=== PATIENT | female | born 1955 | race Caucasian/White ===

== ENCOUNTER 2022-05-28 17:45 | Inpatient (IN) | payer OTHER ==
[~2022-05-28] VITALS: Ht 167.6 cm; Wt 75.0 kg
[~2022-05-28 17:45] MED LIST: ALPR.25 PO; ATOR20 PO; CEPH500 PO; COMBIVENT RESPIM4 GM INH; DIABETIC MED; DIPATR PO; FLUSAL1005 INH; GLIM2 PO; Glucophage1000 MG PO; HYDACE5 PO; HYDPAM25 PO; HYPERTENSION MED; INSDET100 SQ; INSULANPEN SC; METF500; METF500 PO; NAPR500 PO; NERVE MED; OLAN10; OLAN10 PO; OLAN20 MM; RAMI2.5; RAMI2.5 PO; RAMI5 PO; RXHYDACE PO; TIOT18; TRAZ100; TRAZ150T57 PO; TRAZ50 PO; ZYPREXA ZYDIS PO; Zofran Odt8 MG SL
[2022-05-28 19:00] LABS: BASOPHILS ABSOLUTE AUTO 0.07 K/mm3 (0.00-0.23); BASOPHILS PERCENT AUTO 0 % (0-2); EOSINOPHILS ABSOLUTE AUTO 0.16 K/mm3 (0.00-0.68); EOSINOPHILS PERCENT AUTO 1 % (0-6); Hematocrit 37.9 % (33.0-51.0); Hemoglobin 12.4 g/dL (11.5-16.0); IMMATURE GRAN PERCENT AUTO 1 % (0-1); LYMPHOCYTES ABSOLUTE AUTO 2.23 K/mm3 (0.84-5.20); LYMPHOCYTES PERCENT AUTO 9 % (21-46); MONOCYTES ABSOLUTE AUTO 2.26 K/mm3 (0.16-1.47); MONOCYTES PERCENT AUTO 9 % (4-13); Mean Corpuscular HGB 25.9 pg (26.0-34.0); Mean Corpuscular HGB Conc 32.7 g/dL (31.5-36.5); Mean Corpuscular Volume 79 fL (80-100); Mean Platelet Volume 9.6 fL (9.1-12.4); NEUTROPHILS ABSOLUTE AUTO 20.47 K/mm3 (1.96-9.15); NEUTROPHILS PERCENT AUTO 80 % (41-73); Platelet Count 401 K/mm3 (150-400); RDW Standard Deviation 40.3 fL (35.1-46.3); Red Blood Cell Count 4.79 M/mm3 (3.80-5.20); White Blood Cell Count 25.49 K/mm3 (4.00-11.30)
[2022-05-28 19:23] LABS: Albumin, Blood 2.4 g/dL (3.4-5.0); Albumin/Globulin Ratio 0.6 (0.8-1.8); Bilirubin, Total 0.4 mg/dL (0.1-1.0); Bun/Creatinine Ratio 43.6 (12.0-20.0); Calcium, Blood 8.6 mg/dL (8.5-10.1); Creatinine, Blood 1.33 mg/dL (0.40-1.00); Globulin, Blood 4.3 g/dL (2.2-4.0); Potassium, Blood 5.6 mmol/L (3.5-5.5); Total Protein, Blood 6.7 g/dL (6.4-8.2)
[2022-05-28 20:03] LABS: Influenza A, PCR NEGATIVE (NEGATIVE); Influenza B, PCR NEGATIVE (NEGATIVE); Resp Syncytial Virus, PCR NEGATIVE (NEGATIVE); SARS-Cov-2 (COVID-19) PCR, MMC NEGATIVE (NEGATIVE)
[2022-05-28 21:11] LABS: Source, Urine Straight Cath
[2022-05-28 21:14] LABS: Appearance, Urine Clear (Clear); Base Excess Venous 1.4 mmol/L; Bicarbonate Venous 24.8 mmol/L (24.0-30.0); Bilirubin, Urine Neg (Neg); Blood, Urine Neg (Neg); Color, Urine Yellow (P-Yellow); Glucose Qualitative, Urine 2+ (Neg); Ketones, Urine Neg (Neg); Leukocyte Esterase, Urine Neg (Neg); Nitrite, Urine Neg (Neg); PCO2 Venous 53.3 mmHg (38-42); Protein, Urine 2+ (Neg); Specific Gravity, Urine 1.025 (1.003-1.022); Urobilinogen, Urine NORM (Normal); pH Blood Venous 7.32 (7.34-7.37)
[2022-05-28 21:22] LABS: Bacteria Mod /hpf; Squamous Epithelial Cells Few /hpf (Few)
[2022-05-28 23:46] LABS: U Amphetamine Screen Not Detected; U Barbituate Screen Not Detected; U Benzodiazapine Screen Not Detected; U Buprenorphine Screen Not Detected; U Cannabinoids Screen Not Detected; U Cocaine Screen Not Detected; U Methadone Screen Not Detected; U Methamphetamine Screen Not Detected; U Opiates Screen DETECTED; U Oxycodone Screen DETECTED; U Phencyclidine Screen Not Detected; U Propoxyphene Screen Not Detected
[2022-05-28 23:53] LABS: Free Thyroxine 1.58 ng/dL (0.70-1.60)
[2022-05-28 23:54] LABS: Thyroid Stimulating Hormone 1.32 uIU/mL (0.360-4.800)
[2022-05-29] MEDS ORDERED: ALBU90OI INH (01:28)
[2022-05-29] MEDS ORDERED: Buspirone HCl15 MG PO (01:29)
[2022-05-29] MEDS ORDERED: GLIP10 PO (01:34)
[2022-05-29] MEDS ORDERED: LISI5 PO (01:35)
[2022-05-29] MEDS ORDERED: Inderal 20 mg T20 MG PO (01:36)
[2022-05-29] MEDS ORDERED: CLON.5 PO (01:40)
[2022-05-29] MEDS ORDERED: B-12500 MC2 PO (01:42)
[2022-05-29] MEDS ORDERED: MULVITA PO (01:43)
[2022-05-29] MEDS ORDERED: CRANBERRY CONC1 EAC1 PO (01:44)
[2022-05-29 02:20] LABS: Base Excess Venous 3.6 mmol/L; Bicarbonate Venous 26.9 mmol/L (24.0-30.0); PCO2 Venous 46.5 mmHg (38-42)
[2022-05-29 02:34] LABS: BASOPHILS ABSOLUTE AUTO 0.05 K/mm3 (0.00-0.23); BASOPHILS PERCENT AUTO 0 % (0-2); EOSINOPHILS ABSOLUTE AUTO 0.13 K/mm3 (0.00-0.68); EOSINOPHILS PERCENT AUTO 1 % (0-6); Hematocrit 35.5 % (33.0-51.0); Hemoglobin 11.9 g/dL (11.5-16.0); IMMATURE GRAN ABSOLUTE AUTO 0.16 K/mm3 (0.00-0.10); IMMATURE GRAN PERCENT AUTO 1 % (0-1); LYMPHOCYTES ABSOLUTE AUTO 2.43 K/mm3 (0.84-5.20); LYMPHOCYTES PERCENT AUTO 11 % (21-46); MONOCYTES ABSOLUTE AUTO 2.16 K/mm3 (0.16-1.47); MONOCYTES PERCENT AUTO 10 % (4-13); Mean Corpuscular HGB 26.4 pg (26.0-34.0); Mean Corpuscular HGB Conc 33.5 g/dL (31.5-36.5); Mean Corpuscular Volume 79 fL (80-100); Mean Platelet Volume 9.2 fL (9.1-12.4); NEUTROPHILS ABSOLUTE AUTO 17.67 K/mm3 (1.96-9.15); NEUTROPHILS PERCENT AUTO 78 % (41-73); Platelet Count 324 K/mm3 (150-400); RDW Coefficient Variation 13.9 % (11.7-14.2); RDW Standard Deviation 39.7 fL (35.1-46.3); Red Blood Cell Count 4.51 M/mm3 (3.80-5.20)
[2022-05-29 02:59] LABS: Albumin/Globulin Ratio 0.8 (0.8-1.8); Bilirubin, Total 0.5 mg/dL (0.1-1.0); Bun/Creatinine Ratio 50.5 (12.0-20.0); Creatinine, Blood 1.11 mg/dL (0.40-1.00); Globulin, Blood 3.9 g/dL (2.2-4.0); Potassium, Blood 4.6 mmol/L (3.5-5.5); Total Protein, Blood 6.9 g/dL (6.4-8.2)
--- NOTE | 2022-05-29 07:16 | NUR ---
PATIENT AOX2. FOLLOWS COMMANDS AND MOVES ALL EXTREMITIES. SR WITH STABLE BP. AFEBRILE. BIPAP WITH 3L. NPO. PUREWICK IN PLACE. NS AT 75 ML/HR.
--- NOTE | 2022-05-29 08:23 | NUR ---
ASSUMED CARE THIS AM PT. REMAINS ON BIPAP CURRENTLY 29/12 WITH 2L. PT. SPO2 DROPPED QUICKLY TO THE LOW 80S WITH BREAK FROM BIPAP AND ORAL CARE. PT. VERY DROWSY, DOES NOT FOLLOW COMMANDS OR RESPOND TO VERBAL STIMULI. MOANS WITH ORAL CARE. PT. HAS NS INFUSING THROUGH POWERGLIDE. PT. HAS PUREWICK IN PLACE. REPOSITIONED FOR PRESSURE RELIEF, CALL LIGHT IN REACH.
[2022-05-29 09:40] LABS: PCO2 Arterial 47.2 mmHg (35-45); PO2 Arterial 68.5 mmHg (80-100); pH Blood Arterial 7.43 (7.35-7.45)
[2022-05-29] MEDS ORDERED: BASAGLAR K100 UNIT/1 (11:27)
[2022-05-29] MEDS ORDERED: THERA-D2000 UNIT PO (11:29)
--- NOTE | 2022-05-29 14:09 | NUR ---
update Pt more alert at this time. break from bipap on 4lnc. now conversing. oriented to location. oral care completed. pt assisted with her glasses.
--- NOTE | 2022-05-29 16:57 | NUR ---
SHIFT SUMMARY PT. NOW MORE ALERT THAN THIS MORNING. ABLE TO ASSIST WITH TURNS THIS PM. CURRENTLY ON 4LNC. SITTING UP IN BED WATCHING TV. CONTINUES WITH PUREWICK IN PLACE. BIPAP WHEN SLEEPING, GEL PAD AT BEDSIDE TO PROTECT SKIN ON NOSE. PT. C/O BACK PAIN HOWEVER ASSISTED WITH REPOSITIONING FOR COMFORT.VSS. CALL LIGHT IN REACH. STAN ORDERED THIS PM FOR DINNER.
--- NOTE | 2022-05-29 19:00 | NUR ---
ASSUMED CARE ASSUMED CARE OF PATIENT. AWAKE AND ALERT. ORIENTED TO PLACE AND TO SELF. SLOW, MUMBLED VERBAL RESPONSE. MOVES ALL EXTREMITIES. ASSISTS WITH REPOSITIONING. CONTINUES TO C/O LOW BACK PAIN- IMPROVED WITH REPOSITIONING. VSS. MONITOR SHOWS NSR, RATE 90s. PUREWICK IN PLACE- YELLOW URINE. NS INFUSING AT 75MLS/HR. SEE SHIFT ASSESSMENT FOR FULL ASSESSMENT.
--- NOTE | 2022-05-29 23:47 | NUR ---
AFIB/PAIN DR. VALENZUELA NOTIFIED OF RHYTHM CHANGE TO AFIB, RATE 100s-140s. ALSO NOTIFIED OF PT'S C/O LOW BACK PAIN. NEW ORDERS RECEIVED.
[2022-05-30 00:30] LABS: BASOPHILS ABSOLUTE AUTO 0.05 K/mm3 (0.00-0.23); BASOPHILS PERCENT AUTO 0 % (0-2); EOSINOPHILS ABSOLUTE AUTO 0.17 K/mm3 (0.00-0.68); EOSINOPHILS PERCENT AUTO 1 % (0-6); Hematocrit 34.8 % (33.0-51.0); Hemoglobin 11.4 g/dL (11.5-16.0); IMMATURE GRAN ABSOLUTE AUTO 0.12 K/mm3 (0.00-0.10); IMMATURE GRAN PERCENT AUTO 1 % (0-1); LYMPHOCYTES ABSOLUTE AUTO 1.89 K/mm3 (0.84-5.20); LYMPHOCYTES PERCENT AUTO 8 % (21-46); MONOCYTES ABSOLUTE AUTO 1.99 K/mm3 (0.16-1.47); MONOCYTES PERCENT AUTO 9 % (4-13); Mean Corpuscular HGB 26.1 pg (26.0-34.0); Mean Corpuscular HGB Conc 32.8 g/dL (31.5-36.5); Mean Corpuscular Volume 80 fL (80-100); Mean Platelet Volume 8.6 fL (9.1-12.4); NEUTROPHILS ABSOLUTE AUTO 18.67 K/mm3 (1.96-9.15); NEUTROPHILS PERCENT AUTO 82 % (41-73); Platelet Count 341 K/mm3 (150-400); RDW Standard Deviation 40.8 fL (35.1-46.3); Red Blood Cell Count 4.36 M/mm3 (3.80-5.20); White Blood Cell Count 22.89 K/mm3 (4.00-11.30)
[2022-05-30 00:53] LABS: Magnesium, Blood 1.3 mg/dL (1.6-2.4)
[2022-05-30 00:54] LABS: Albumin, Blood 2.6 g/dL (3.4-5.0); Albumin/Globulin Ratio 0.7 (0.8-1.8); Bilirubin, Total 0.5 mg/dL (0.1-1.0); Bun/Creatinine Ratio 30.2 (12.0-20.0); Calcium, Blood 8.7 mg/dL (8.5-10.1); Creatinine, Blood 0.73 mg/dL (0.40-1.00); Globulin, Blood 3.7 g/dL (2.2-4.0); Potassium, Blood 4.3 mmol/L (3.5-5.5); Total Protein, Blood 6.3 g/dL (6.4-8.2)
--- NOTE | 2022-05-30 03:24 | NUR ---
RHYTHM CHANGE MONITOR NOW SHOWS NSR, RATE 80s.
--- NOTE | 2022-05-30 06:25 | NUR ---
SHIFT SUMMARY PT'S RHYTHM CHANGED TO AFIB, RATE 100-140s DURING NOC. LOPRESSOR 5MG IV X 1 DOSE GIVEN. CONVERTED TO NSR. BP STABLE. AFEBRILE. O2 3-5L NC DURING NOC- NOW AT 4LNC. PT REFUSED BIPAP WITH SLEEP. SATS STABLE. C/O BACK PAIN- REPOSITIONING HELPS AT TIMES, BUT ALSO MEDICATED WITH FENTANYL 25MCG IV X 1 DOSE WITH GOOD RESULTS. CONTINUES TO BE ORIENTED TO SELF AND PLACE WHEN AWAKE. OCCASIONAL CONFUSED COVERSATION AND DELAYED, SLOW VERBAL RESPONSE. PUREWICK REMAINS IN PLACE- YELLOW URINE. ASSISTS WITH REPOSITIONING. WILL REPORT TO ONCOMING RN WHEN AVAILABLE.
--- NOTE | 2022-05-30 10:23 | NUR ---
PT SAT ON THE EDGE OF THE BED WITH OT, BUT THEN DECIDED SHE WANTED TO GO BACK TO BED AND WOULD NOT COOPERATE WITH OT EVAL ANY LONGER. PT ASSISTED BACK TO BED, BOOSTED, AND REPOSITIONED TO LEFT SIDE. ATTENDS DRY.
[2022-05-30 11:16] LABS: Base Excess Venous 5.9 mmol/L; Bicarbonate Venous 27.7 mmol/L (24.0-30.0); PCO2 Venous 63.9 mmHg (38-42); pH Blood Venous 7.31 (7.34-7.37)
--- NOTE | 2022-05-30 12:00 | NUR ---
PT CONTINUES TO REPORT LOW BACK PAIN. PT STATES THAT HER PAIN LEVEL IS A 12/10-MED WITH FENTANYL 25 MCG IVP X 1. PT ATE 10% OF LUNCH. PT REPORTS POOR APPETITE DUE TO BACK PAIN. CBG 325 COVERED PER SLIDING SCALE. WILL UPDATE DR. REYES TO INQUIRE ABOUT INCREASING SLIDING SCALE. VS WDL. SATS>90% ON 3 LITERS NASAL CANULA.
--- NOTE | 2022-05-30 13:25 | NUR ---
PT ASSISTED OOB TO CHAIR WITH MINIMAL ASSIST USING WALKER. SATS>90% ON 3 LITERS NASAL CANULA-MILD EXERTIONAL DYSPNEA NOTED.
--- NOTE | 2022-05-30 13:30 | NUR ---
DR. REYES CONTACTED TO UPDATE REGARDING CBG. SLIDING SCALE INCREASED AND LONG ACTING INSULIN ORDERED PER PT HOME REGIME. PT ASSISTED BACK TO BED AND PLACED ON BIPAP 20/10 FIO2 40%-PER DR. REYES ORDER VBG CO2 INCREASED FROM PREVIOUS RESULT. NO CHANGE IN MENTATION OR INCREASED WOB/SOB NOTED ON 3 LITERS NASAL CANULA. PT MOVING HER HEAD AWAY FROM THE BIPAP MASK AND SAYING "NO MY BACK STILL HURTS!" MED WITH FENTANYL 25 MCG IVP X 1.
--- NOTE | 2022-05-30 14:22 | NUR ---
PT RESTING QUIETLY ON BIPAP AT THIS TIME-SPO2 100%.
--- NOTE | 2022-05-30 15:52 | NUR ---
PT HAS BEEN RESTING QUIETLY ON BIPAP. PT AWAKENED TO VOICE AND TOLERATED A BREIF BREAK FROM BIPAP FOR ORAL CARE. LUNGS ARE VERY COARSE THROUGH OUT. PT COUGH IS WEAK, MOIST, AND NONPRODUCTIVE. PT COUGH EFFORT IS POOR. SATS>90% ON FIO2 30%. ECG CONTINUES SR. SBP 150'S. NO NOTED EDEMA. BNP DRAWN AND SENT TO LAB. PT BOOSTED IN BED AND REPOSITIONED TO LEFT SIDE. ATTENDS DRY.
--- NOTE | 2022-05-30 16:10 | NUR ---
SPO2 DOWN TO 79% ON BIPAP 20/10-FIO2 30%. RR 40-46. PT PLACED ON FIO2 100% AND SATS RETURNED TO THE MID 80'S. LUNGS COARSE THROUGH OUT. COUGH EFFORT REMAINS POOR. TV 200'S AT TIMES. DR. REYES UPDATED. PT MADE ICU STATUS, STAT ABG DRAWN, AND DR. VINSON CONSULTED.
[2022-05-30 16:28] LABS: PCO2 Arterial 57.6 mmHg (35-45); PO2 Arterial 176 mmHg (80-100); pH Blood Arterial 7.36 (7.35-7.45)
--- NOTE | 2022-05-30 16:36 | NUR ---
DR. VINSON IN TO SEE PT. FULL UPDATE GIVEN.
--- NOTE | 2022-05-30 17:15 | NUR ---
PT NOT TOLERATING BIPAP. PT YELLING INTO THE MASK "GET ME OUT OF HERE!" RR 40'S. DR. VINSON SUMMONED TO THE BEDSIDE. ABG RESULTS REVIEWED. PT GIVEN BREAK FROM BIPAP AND PLACED ON 3 LITERS NASAL CANULA. ATTEMPTED FLUTTER VALVE, BUT PT NOT ABLE TO COOPERATE. BED PERCUSSION DONE X 20 MINUTES AND PT ENCOURAGED TO COUGH AND DEEP BREATHE. AFTER THE BED PERCUSSION, COUGH EFFORT IMPROVED SOMEWHAT. HOWEVER, PT MOIST COUGH REMAINS NONPRODUCTIVE. PT NPO EXCEPT FOR SIPS OF WATER SHE IS AT HIGH RISK FOR ASPIRATION. WILL ADJUST CBG AND COVERAGE ACCORDINGLY.
--- NOTE | 2022-05-30 18:11 | NUR ---
PT CRYING OUT FOR HELP. PT REPORTS THAT HER LOWER BACK IS HURTING AGAIN. PT MED WITH FENTANYL 25 MCG IVP X 1 FOR PAIN-SEE EMAR. PT REQUESTED TO WATCH TV-REQUEST GRANTED. PT REQUESTED WATER-PT GIVEN SIPS OF WATER WITHOUT DIFFICULTY. CURRENTLY, RR 24 SPO2 >90% ON 3 LITERS NASAL CANULA. BED PERCUSSION INITIATED AGAIN X 20 MINUTES.
--- NOTE | 2022-05-30 19:17 | NUR ---
ASSSUMED CARE OF PT AT 1900. PT PRESENTS IN BED. O2 ON AT 3 L/M PER NASAL CANNULA. REPORT RECEIVED AT BEDSIDE. WAS REPORTED PT DID HAVE SOME COUGH AFTER TAKING A SIP OF WATER. WILL MONITOR. PT CALLS OUT "COME ON, SHOW ME" WITHOUT REFERENCE TO THIS STATEMENT. SOME DISORIENTATION NOTED. PT INCONTINENT TO URINE. WILL REVIEW CHART AND PLAN OF CARE FOR THIS PT.
--- NOTE | 2022-05-30 23:01 | NUR ---
PT HAS REMOVED HER NASAL CANNULA FREQUENTLY AND NEEDED TO BE INFORMED THAT THIS WAS HELPING HER WITH HER BREATHING TO KEEP IT ON. HAS NOT PULLED OXYGEN OFF SINCE. WILL MONITOR. PT HAS BEEN INCONTINENT TO URINE SEVERAL TIMES. PT HAS BEEN CALLING OUT FREQUENTLY FOR SOMEONE TO COME TO HER ROOM. PT IS NOT ALWAYS CERTAINS WHY SHE HAS CALLED OUT. HAVE WORKED WITH pt ON SAFE SWALLOW TECHINQUES. PT HAS DEMONSTRATED GOOD TECHNIQUE WITH TURNS.
[2022-05-31 04:43] LABS: Base Excess Venous 9.8 mmol/L; Bicarbonate Venous 31.8 mmol/L (24.0-30.0); PCO2 Venous 58.2 mmHg (38-42); pH Blood Venous 7.39 (7.34-7.37)
[2022-05-31 05:02] LABS: BASOPHILS ABSOLUTE AUTO 0.06 K/mm3 (0.00-0.23); BASOPHILS PERCENT AUTO 0 % (0-2); EOSINOPHILS ABSOLUTE AUTO 0.23 K/mm3 (0.00-0.68); EOSINOPHILS PERCENT AUTO 1 % (0-6); Hematocrit 35.8 % (33.0-51.0); Hemoglobin 11.5 g/dL (11.5-16.0); IMMATURE GRAN PERCENT AUTO 1 % (0-1); LYMPHOCYTES ABSOLUTE AUTO 2.57 K/mm3 (0.84-5.20); LYMPHOCYTES PERCENT AUTO 14 % (21-46); MONOCYTES ABSOLUTE AUTO 1.94 K/mm3 (0.16-1.47); MONOCYTES PERCENT AUTO 10 % (4-13); Mean Corpuscular HGB Conc 32.1 g/dL (31.5-36.5); Mean Corpuscular Volume 81 fL (80-100); Mean Platelet Volume 9.1 fL (9.1-12.4); NEUTROPHILS ABSOLUTE AUTO 14.09 K/mm3 (1.96-9.15); NEUTROPHILS PERCENT AUTO 74 % (41-73); Platelet Count 368 K/mm3 (150-400); RDW Standard Deviation 41.2 fL (35.1-46.3); Red Blood Cell Count 4.43 M/mm3 (3.80-5.20); White Blood Cell Count 18.99 K/mm3 (4.00-11.30)
[2022-05-31 05:31] LABS: Albumin, Blood 2.6 g/dL (3.4-5.0); Anion Gap 3 mmol/L (6-16); Blood Urea Nitrogen 12 mg/dL (8-24); Bun/Creatinine Ratio 19.4 (12.0-20.0); CO2, Blood 34 mmol/L (21-32); Calcium, Blood 9.1 mg/dL (8.5-10.1); Chloride, Blood 96 mmol/L (98-108); Creatinine, Blood 0.62 mg/dL (0.40-1.00); Glomerular Filtration Rate 98 (60-); Glucose, Blood 136 mg/dL (70-99); Phosphorus, Blood 1.9 mg/dL (2.5-4.9); Potassium, Blood 4.2 mmol/L (3.5-5.5); Sodium, Blood 133 mmol/L (136-145)
--- NOTE | 2022-05-31 05:42 | NUR ---
PT WOULD ONLY ALLOW WEARING BIPAP FOR APPROX 2 HOURS. HAVE PLACED 02 TO 2 L/M PER NASAL CANNULA. PT WILL MAINTAIN SATURATIONS > 90 PERCENT WITH OXYGEN. PT DOES AT TIMES REMOVE HER OXYGEN AND WILL DESATURATE TO 84 PERCENT. PT CALLS OUT FOR WATER. EXPLAINED TO PT THAT SHE WAS TO BE NOTHING BY MOUTH - NPO. PT WILL REPEAT HER REQUEST FOR WATER SOON AFTERWARDS. HAVE ALLOWED OCCASSIONAL ICE CHIP FOR PT. DID DO SAFE SWALLOW TRIAL WHICH PT WAS ABLE TO TAKE HER HS MED WITH APPLESAUCE WITHOUT COUGH. PT HAS BEEN INCONTINENT TO URINE MULTIPLE TIMES THIS NIGHT. DOES ASSIST SOME WITH TURNS. SLIGHT REDNESS IN ABDOMINAL FOLDS. POWDER APPLIED. WILL CONTINUE TO MONITOR PT, AND WILL REPORT OFF TO ONCOMING RN.
--- NOTE | 2022-05-31 07:37 | NUR ---
Assumed care. Report received from nightshift RN. Pt resting in bed, on 02 via NC at 2 L/min. NS TKO. VS stable. Will continue to monitor.
--- NOTE | 2022-05-31 13:52 | NUR ---
Case conferenced with IDT meeting in ICU this am. Pt resides in [facility] locally, in [facility]. Dr requested advanced care planning conversations with pt, family or [facility] provider as appropriate. I attempted visit earlier this am when ST, OT and PT evals were happening. After reviewing their notes feel that having family/CG input is necessary for conversation re: goals of care and code status. VM message left for [facility] CG, Bob at [facility] , requesting to meet with her in pt's room or by telephone. Pt has been placed on a modified feeding plan with aspiration precautions due to evidence of impaired swallow. See ST eval and notes for more details on swallow and cognitive eval/function.
--- NOTE | 2022-05-31 15:13 | NUR ---
"Spiritual Care | Nurse request Pt. is awake in bed and is pleasant. Pt. displays evidence of intellectual disability. With a calming presence this nursing home director attempted to establish rapport. Pt. did welcome this nursing home director to watch television with her. Pt. displayed evidence of contentment. After 15 minutes this nursing home director excused himself. Will be available to Pt."
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
--- NOTE | 2022-05-31 18:48 | NUR ---
Shift summary. Pt on 02 at 2 L/min still. Precedex discontinued, pt pcu status. Up for PT today and to the bedside commode, standby assist. Pt seen by speech therapy, on puree diet, honey thick liquids. No acute events this shift. VS stable, see assessment for further details. Will report off to oncoming RN.
--- NOTE | 2022-05-31 23:32 | NUR ---
ASSUMPTION OF CARE/ASSESSMENT: ASSUMPED CARE OF PT AT 1900. PT IS IN BED AND A&O X 1-2; PT WAS ABLE TO ACCURATELY STATE NAME, , CITY/STATE AND THAT ANDREW JUST PASSED. PT IS FOLLOWING DIRECTIONS AND HELPING WITH TURNS. PT CURRENTLY ON NC @ 4 LPM WITH SPO2 94<. PT LUNG SOUNDS ARE COARSE THROUGHOUT AND WEAK COUGH OBSERVED. PT SINUS RYTHYM ON MONITOR WITH HR 80'S AND SBP 130-140' PT HAS NO C/O CHEST PAIN AT THIS TIME. PT HAS HYPERACTIVE BS IN ALL QUADRANTS. PT INCONTINENT OF VOIDS/ELIMINATION; DEPENDS IN PLACE. PPP X 4; PT SKIN WARM. BED LOWERED, CALL LIGHT IN REACH, WILL CONTINUE TO MONITOR.
[2022-06-01 04:18] LABS: BASOPHILS ABSOLUTE AUTO 0.06 K/mm3 (0.00-0.23); BASOPHILS PERCENT AUTO 0 % (0-2); EOSINOPHILS PERCENT AUTO 1 % (0-6); Hemoglobin 11.7 g/dL (11.5-16.0); IMMATURE GRAN ABSOLUTE AUTO 0.05 K/mm3 (0.00-0.10); IMMATURE GRAN PERCENT AUTO 0 % (0-1); LYMPHOCYTES ABSOLUTE AUTO 2.14 K/mm3 (0.84-5.20); LYMPHOCYTES PERCENT AUTO 13 % (21-46); MONOCYTES ABSOLUTE AUTO 1.56 K/mm3 (0.16-1.47); MONOCYTES PERCENT AUTO 10 % (4-13); Mean Corpuscular HGB 26.2 pg (26.0-34.0); Mean Corpuscular HGB Conc 32.5 g/dL (31.5-36.5); Mean Corpuscular Volume 81 fL (80-100); Mean Platelet Volume 8.5 fL (9.1-12.4); NEUTROPHILS ABSOLUTE AUTO 12.03 K/mm3 (1.96-9.15); NEUTROPHILS PERCENT AUTO 75 % (41-73); Platelet Count 357 K/mm3 (150-400); RDW Coefficient Variation 13.7 % (11.7-14.2); RDW Standard Deviation 40.1 fL (35.1-46.3); Red Blood Cell Count 4.47 M/mm3 (3.80-5.20); White Blood Cell Count 16.04 K/mm3 (4.00-11.30)
[2022-06-01 04:43] LABS: Albumin, Blood 2.3 g/dL (3.4-5.0); Anion Gap 5 mmol/L (6-16); Blood Urea Nitrogen 9 mg/dL (8-24); Bun/Creatinine Ratio 14.8 (12.0-20.0); CO2, Blood 35 mmol/L (21-32); Calcium, Blood 9.3 mg/dL (8.5-10.1); Chloride, Blood 92 mmol/L (98-108); Creatinine, Blood 0.61 mg/dL (0.40-1.00); Glomerular Filtration Rate 98 (60-); Glucose, Blood 162 mg/dL (70-99); Phosphorus, Blood 2.4 mg/dL (2.5-4.9); Potassium, Blood 4.3 mmol/L (3.5-5.5); Sodium, Blood 132 mmol/L (136-145)
--- NOTE | 2022-06-01 10:02 | NUR ---
SHIFT ASSESSMENT PT ALERT AND ORIENTED TO PERSON AND PLACE, FOLLOWING ALL COMMANDS, COMMUNICATING NEEDS. ASSISTING WITH TURNS, HUSAIN. ON 2LPM O2 VIA NC c SATS >90%. BP STABLE, NSR ON THE MEDICAID ELIGIBILITY SPECIALIST. TOLERATING PO INTAKE. INCONTINENT OF URINE, CHANGED AND REPOSITIONED. NO COMPLAINTS FROM PT AT THIS TIME.
--- NOTE | 2022-06-01 18:01 | NUR ---
SHIFT SUMMARY PT REMAINS ALERT AND ORIENTED TO HER NORM. FOLLOWING COMMANDS, ASSISTING WITH TURNS. INCONTINENT OF URINE. C/O SOME SOB THIS AFTERNOON, PRN BREATHING TREATMENTS WITH ADEQUATE RELIEF, LS REMAIN COARSE, CONTINUES ON 2LPM VIA NC c SATS >90%. ATTEMPTED TO TITRATE O2 OFF BUT SATS DROPPED TO HIGH 80'S ON RA. PT c HX OF ANXIETY, GIVEN 0.5MG ATIVAN THIS AFTERNOON, PT TOLERATED WELL, ABLE TO RELAX. OTHERWISE NO OTHER SIGNIFICANT CHANGES.
--- NOTE | 2022-06-02 06:15 | NUR ---
SHIFT SUMMARY: NO ACUTE CHANGES THIS SHIFT. VSS THROUGHOUT THE NIGHT; PT MAINTAINED SPO2 96< ON NC @ 2LPM. PT ANXIOUS/AGGITATED FOR FIRST HALF OF SHIFT AND THEN WAS ABLE TO SETTLE AND GET SOME SLEEP FOR THE REST OF THE SHIFT. WILL CONTINUE TO MONITOR UNTIL ONCOMING RN ARRIVES.
--- NOTE | 2022-06-02 07:49 | NUR ---
SHIFT ASSESSMENT PT ALERT AND ORIENTED TO PTS NORM, FOLLOWING COMMANDS, YELLING OUT OCCASIONALLY. LS REMAIN COARSE, INITIALLY ON 2LPM VIA NC, RT TITRATED DOWN TO 1LPM VIA NC, SATS >90%. PT WITH WEAK, NON-PRODUCTIVE COUGH. BP STABLE. INCONTINENT OF URINE, NO BM THIS AM. WILL CONTINUE TO MONITOR
--- NOTE | 2022-06-02 15:05 | NUR ---
REPORT GIVEN TO DIAMOND NOEL.
--- NOTE | 2022-06-02 18:37 | NUR ---
SHIFT SUMMARY: I assumed care of this patient at 1500. She is on 2 L NC, however she takes this off frequently and yells out "I can't breathe!" with oxygen saturations in the 90's. She was given one dose of PRN norco for low back/bilateral side pain. Minimal appetite with dinner.
--- NOTE | 2022-06-02 18:55 | NUR ---
PROVIDER PHONE CALL: Dr Álvarez called and informed that pt afib/aflutter was noted on cardiac tele. Telephone order for elequis and chem 8.
--- NOTE | 2022-06-02 19:23 | NUR ---
ASSUMED CARE OF PT AT 1900 JOEL CASAS RN PT AWAKE RESTING IN BED. A/O TO SELF. DID NOT ANSWER QUESTIONS UNLESS YES OR NO AT THIS TIME. PT KEEPS YELLING OUT THAT SHE CANNOT BREATH. HEAD OF BED RAISED AND NC REAPPLIED. REPORT GIVEN BY AM RN THAT PT TAKES NC OFF CONSTANTLY. SPO2 >93% AT THIS TIME. NO IV'S RUNNING AT THIS TIME. POWERGLIGE IN PLACE ON LEFT UPPER ARM, PATENT FLUSHED WITH 10 MLS NS. PT WEARING ATTENDS C/D/I AT THIS TIME. SEE FULL ASSESSMENT FOR FURTHER INFORMATION.
[2022-06-03 05:16] LABS: Bun/Creatinine Ratio 15.4 (12.0-20.0); Calcium, Blood 9.6 mg/dL (8.5-10.1); Creatinine, Blood 0.58 mg/dL (0.40-1.00); Potassium, Blood 4.1 mmol/L (3.5-5.5)
--- NOTE | 2022-06-03 05:48 | NUR ---
END OF SHIFT SUMMARY PT RESTED FOR ONLY A FEW HOURS INTERMITENTLY THROUGHOUT THE NIGHT. RANDOMLY YELLS OUT WITH NO CAUSE. CONSTANTLY PULLS OXYGEN OFF OF FACE. RESP- SPO2 >92% ON 2LPM NC. LUNG SOUNDS COURSE BILATERALLY WITH DIMINISHED BASES. PT IS SALINE LOCKED AT THIS TIME. GI, - PT HAD MULTIPLE SOAKED ATTENDS THROUGHOUT THE NIGHT. NO BM THIS SHIFT. PRN MEDICATIONS GIVEN FOR PAIN AND ANXIETY AT MIDNIGHT. WILL CONTINUE TO MONITOR UNTIL REPORT GIVEN TO AM RN.
--- NOTE | 2022-06-03 08:55 | NUR ---
CARE OF PT ASSUMED AT 0700. PT AWAKE, ANSWERS QUESTIONS AT TIMES. PT HAS HX OF IDD. PT APPEARS RESISTANT TO CARE AT TIMES. WILL EITHER STATE "NO" OR CLOSE EYES AND APPEARS TO PRETEND TO BE ASLEEP. PT GIVEN BED BATH AND ASSISTED TO CHAIR; PT UNHAPPY ABOUT MOVING TO CHAIR. PT HAS WEAK WET COUGH, ENCOURAGED TO COUGH BUT REFUSED AFTER ONE COUGH. PT ASSISTED TO WHEELCHAIR FOR SWALLOW EVAL AT 0900. HOLDING BREAKFAST AND PO MEDS UNTIL AFTER BARIUM SWALLOW. SATS >95% ON 2L VIA N/C.
--- NOTE | 2022-06-03 12:17 | NUR ---
ORDERS RECIEVED TO DISCHARGE PT HOME TO HER CARE FACILITY. O2 REMOVED BY DR HIDALGO TO SEE IF PT WOULD REQUIRE HOME O2. INITIALLY O2 SATS >90% BUT THEN AFTER 5MIN SATS DROPPED TO 86%. PT ENCOURAGED TO COUGH AND DEEP BREATH BY SATS REMAINED LESS THAN 90%; AROUND 88%. 02 REPLACED AT 2L, RT CALLED FOR HOME O2 EVAL. PT DID PASS SWALLOW EVAL PER SPEECH. 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
[2022-06-03] MEDS ORDERED: BUSPIRONE HCL7.5 M1 PO (13:21)
[2022-06-03] MEDS ORDERED: TRAZ50 PO (13:24)
[2022-06-03] MEDS ORDERED: XARELTO20 MG PO (13:25)
[2022-06-03] MEDS ORDERED: OLAN10 PO (13:25)
--- NOTE | 2022-06-03 13:58 | NUR ---
Pt is being d/c'd home today to foster home. She is alert and verbalizes understanding that she does not wish to remain a full code. She and her primary CG Bob have discussed it at length both in and outside of hospital setting. Pt would like to change code status to DNR with Limited intervention. She is very sure she would not be "hooked up to a machine". Signed by pt and physician, will be sent home, and a copy to both medical records and [facility] registry.
--- NOTE | 2022-06-03 14:28 | NUR ---
PATIENT REQUEST'S THAT [facility], SUPPLY OXYGEN TO THEM.
--- NOTE | 2022-06-03 15:04 | NUR ---
VERBAL AND WRITTEN DC INFO GIVEN TO ADRYAN/PERIOPERATIVE EDUCATOR W CLEAR UNDERSTANDING. RX'S FAXED TO PHARMACY. AWAITING HOME O2 FROM [facility] PRIOR TO DISCHARGE. PT'S ATTENDS CHANGED, AND PT DRESSED.
--- NOTE | 2022-06-03 15:45 | NUR ---
PT DISCHARGED HOME IN CARE OF [facility]CUSTOM SHOEMAKER AT 1535. PT SENT HOME ON 2L O2 VIA N/C WHICH [facility] SUP[facility].
== END 2022-06-03 15:42 | disposition home or self-care (01) | DRG 193 ==
LOC: ER 17:45 → ICUW 23:59
PROVIDERS: Emergency Medicine; Family Medicine; Internal Medicine; Internal Medicine Critical Care Medicine; Student in an Organized Health Care Education/Training Program; ADMIT Internal Medicine
PROC: 5A09457 Assistance with Respiratory Ventilation, 24-96 Consecutive Hours, Continuous Positive Airway Pressure (ICD-10-PCS; principal; 2022-05-28)
DX: J18.9 Pneumonia, unspecified organism (principal); G92.8 Other toxic encephalopathy; I63.81 Other cerebral infarction due to occlusion or stenosis of small artery; J96.21 Acute and chronic respiratory failure with hypoxia; J96.22 Acute and chronic respiratory failure with hypercapnia; E87.1 Hypo-osmolality and hyponatremia; N17.9 Acute kidney failure, unspecified; Z20.822 Contact with and (suspected) exposure to COVID-19; I10 Essential (primary) hypertension; E11.9 Type 2 diabetes mellitus without complications; E66.9 Obesity, unspecified; G47.33 Obstructive sleep apnea (adult) (pediatric); F17.210 Nicotine dependence, cigarettes, uncomplicated; E78.00 Pure hypercholesterolemia, unspecified; J45.909 Unspecified asthma, uncomplicated; F32.A Depression, unspecified; E86.0 Dehydration; E83.42 Hypomagnesemia; E83.39 Other disorders of phosphorus metabolism; G89.4 Chronic pain syndrome; F89 Unspecified disorder of psychological development; F20.9 Schizophrenia, unspecified; I48.0 Paroxysmal atrial fibrillation; Z68.32 Body mass index [BMI] 32.0-32.9, adult; Z98.891 History of uterine scar from previous surgery; Z90.49 Acquired absence of other specified parts of digestive tract; Z79.4 Long term (current) use of insulin; Z79.51 Long term (current) use of inhaled steroids; Z79.899 Other long term (current) drug therapy
CPT/HCPCS: 0241U; 36415; 36600; 51701; 70450; 71045; 71046; 74230; 80048; 80053; 80069; 81001; 82140; 82803; 82947; 83605; 83735; 83880; 84100; 84145; 84439; 84443; 84484; 85025; 87040; 87086; 92610; 92611; 93005; 93010; 93306; 94640; 94660; 94664; 94668; 94761; 94762; 96374-59; 96375-59; 97110; 97162; 97165; 97530; 97535; 99285-25; A9270; C1751; C9113; J1650; J1815; J1940; J2060; J2310; J2543; J3010; J3475; J7030; J7040; J7060; P9047